=== PATIENT | male | born 1960 | race Caucasian/White ===

== ENCOUNTER 2016-04-19 13:59 | Outpatient (RCR) | payer MEDICARE, OTHER ==
[~2016-04-19 13:59] MED LIST: NORCO 10/3251 EA ORAL; ROBAXIN-750750 MG PO
== END 2016-05-17 | disposition home or self-care (01) ==
LOC: WCC 13:59
DX: L89.614 Pressure ulcer of right heel, stage 4 (principal); G90.09 Other idiopathic peripheral autonomic neuropathy; S34.109D Unspecified injury to unspecified level of lumbar spinal cord, subsequent encounter; I10 Essential (primary) hypertension; Z86.59 Personal history of other mental and behavioral disorders; Z79.82 Long term (current) use of aspirin
CPT/HCPCS: 11043; 15275; G0463; Q4132

== ENCOUNTER 2016-05-31 13:56 | Outpatient (RCR) | payer MEDICARE, OTHER ==
[~2016-05-31] VITALS: Ht 185.4 cm; Wt 93.0 kg
[2016-06-01] MEDS ORDERED: Lidocaine 2% MPF 5ml Vial INJ ONE (16:15)
== END 2016-06-14 | disposition home or self-care (01) ==
LOC: WCC 13:56
DX: L89.614 Pressure ulcer of right heel, stage 4 (principal); G90.09 Other idiopathic peripheral autonomic neuropathy; Z90.49 Acquired absence of other specified parts of digestive tract; I10 Essential (primary) hypertension; F41.9 Anxiety disorder, unspecified; F32.9 Major depressive disorder, single episode, unspecified; Z79.82 Long term (current) use of aspirin; Z88.8 Allergy status to other drugs, medicaments and biological substances; S34.109A Unspecified injury to unspecified level of lumbar spinal cord, initial encounter
CPT/HCPCS: 11043; 11100; G0463

== ENCOUNTER 2016-06-28 14:02 | Outpatient (RCR) | payer MEDICARE, OTHER | END 2016-07-15 | disposition home or self-care (01) | LOC: WCC 14:02 | DX: L89.614 Pressure ulcer of right heel, stage 4 (principal); G90.09 Other idiopathic peripheral autonomic neuropathy; Z90.49 Acquired absence of other specified parts of digestive tract; I10 Essential (primary) hypertension; F41.9 Anxiety disorder, unspecified; F32.9 Major depressive disorder, single episode, unspecified; S34.109S Unspecified injury to unspecified level of lumbar spinal cord, sequela; L97.321 Non-pressure chronic ulcer of left ankle limited to breakdown of skin; X58.XXXD Exposure to other specified factors, subsequent encounter; Z79.82 Long term (current) use of aspirin | CPT/HCPCS: 11042; 11721; G0463 ==

== ENCOUNTER 2016-07-19 14:00 | Outpatient (RCR) | payer MEDICARE, OTHER | END 2016-08-14 | disposition home or self-care (01) | LOC: WCC 14:00 | DX: L89.614 Pressure ulcer of right heel, stage 4 (principal); G90.09 Other idiopathic peripheral autonomic neuropathy; Z90.49 Acquired absence of other specified parts of digestive tract; I10 Essential (primary) hypertension; F41.9 Anxiety disorder, unspecified; F32.9 Major depressive disorder, single episode, unspecified; S34.109S Unspecified injury to unspecified level of lumbar spinal cord, sequela; L97.321 Non-pressure chronic ulcer of left ankle limited to breakdown of skin | CPT/HCPCS: 11042; G0463 ==

== ENCOUNTER 2016-08-16 13:43 | Outpatient (RCR) | payer MEDICARE, OTHER | END 2016-09-14 | disposition home or self-care (01) | LOC: WCC 13:43 | DX: L89.614 Pressure ulcer of right heel, stage 4 (principal); G90.09 Other idiopathic peripheral autonomic neuropathy; Z90.49 Acquired absence of other specified parts of digestive tract; I10 Essential (primary) hypertension; F41.9 Anxiety disorder, unspecified; F32.9 Major depressive disorder, single episode, unspecified; S34.109S Unspecified injury to unspecified level of lumbar spinal cord, sequela; L97.321 Non-pressure chronic ulcer of left ankle limited to breakdown of skin | CPT/HCPCS: 11055; G0463 ==

== ENCOUNTER 2016-09-27 13:49 | Outpatient (RCR) | payer MEDICARE, OTHER | END 2016-10-14 | disposition home or self-care (01) | LOC: WCC 13:49 | DX: L89.614 Pressure ulcer of right heel, stage 4 (principal); G90.09 Other idiopathic peripheral autonomic neuropathy; Z90.49 Acquired absence of other specified parts of digestive tract; I10 Essential (primary) hypertension; F41.9 Anxiety disorder, unspecified; F32.9 Major depressive disorder, single episode, unspecified; M21.372 Foot drop, left foot; L03.115 Cellulitis of right lower limb; S34.109S Unspecified injury to unspecified level of lumbar spinal cord, sequela; X58.XXXS Exposure to other specified factors, sequela; Z79.82 Long term (current) use of aspirin | CPT/HCPCS: 87070; 87181; 87205; G0463 ==

== ENCOUNTER 2016-11-01 14:00 | Outpatient (RCR) | payer MEDICARE, OTHER | END 2016-11-14 | disposition home or self-care (01) | LOC: WCC 14:00 | DX: L97.411 Non-pressure chronic ulcer of right heel and midfoot limited to breakdown of skin (principal); L89.614 Pressure ulcer of right heel, stage 4; G90.09 Other idiopathic peripheral autonomic neuropathy; Z90.49 Acquired absence of other specified parts of digestive tract; I10 Essential (primary) hypertension; S34.109S Unspecified injury to unspecified level of lumbar spinal cord, sequela; M21.372 Foot drop, left foot; L03.115 Cellulitis of right lower limb; L60.2 Onychogryphosis; Z79.82 Long term (current) use of aspirin | CPT/HCPCS: 11721; 87070; 87181; 87205; G0463 ==

== ENCOUNTER 2016-11-15 14:00 | Outpatient (RCR) | payer MEDICARE, OTHER ==
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
--- NOTE | 2016-11-29 15:47 | Infectious Diseases Prog Note ---
Assessment/Plan Problems: (1) Osteomyelitis, chronic Assessment & Plan: due to MRSA, pseudomonas aeruginosa and klebsiella oxytoca , failed multiple courses of IV antibiotics , recommend calcaneal bone amputation for cure, , but he refused. will continue doxycycline for rodent exterminator suppression , to cover MRSA. unfortunately we can't use fluoroquinolone for his Pseudomonas aeruginosa suppression since he is allergic . continue local wound care as per secretary bookkeeper and dressing change . can't use rifampin either due to multiple drugs interaction . D/W patient and secretary bookkeeper in details (2) Open wound of right heel Assessment & Plan: due to underlying chronic osteomyelitis, continue local wound care with debriedment as needed as per secretary bookkeeper , on doxycycline care home suppression Subjective Constitutional: Reports: no symptoms HEENT: Reports: no symptoms Respiratory: Reports: no symptoms Breasts: Reports: no symptoms Cardiovascular: Reports: no symptoms Gastrointestinal/Abdominal: Reports: no symptoms Genitourinary: Reports: no symptoms Neurologic: Reports: no symptoms Psychiatric: Reports: anxiety Skin: Reports: ulcer Endocrine: Reports: no symptoms Hematologic: Reports: no symptoms Musculoskeletal: Reports: no symptoms Allergies: Coded Allergies: LEVOFLOXACIN (Unverified Allergy, Unknown, 11/07/13) Objective General Appearance: WD/WN, no acute distress HEENT: normocephalic, atraumatic, anicteric, mucous membranes moist, PERRL, EOMI, pharynx normal, supple, no JVD Respiratory/Chest: chest wall non-tender, lungs clear, normal breath sounds, no respiratory distress, no accessory muscle use Cardiovascular: normal peripheral pulses, normal rate, regular rhythm, no gallop/murmur, no JVD Abdomen: normal bowel sounds, soft, non tender, no organomegaly, non distended , no mass, no scars Extremities: no cyanosis, no clubbing Skin: no rash, lesions, ulcers - right heel chronic wound , with hyperkeratosis , and small sinus track Neurologic/Psychiatric: alert, oriented x 3, responsive Lymphatic: no neck adenopathy, no groin adenopathy Musculoskeletal: normal muscle bulk Yelena Martinez M.D. Nov 29, 2016 15:47
--- NOTE | 2016-12-13 16:02 | Infectious Diseases Prog Note ---
Assessment/Plan Problems: (1) Osteomyelitis, chronic Assessment & Plan: due to MRSA, pseudomonas aeruginosa and klebsiella oxytoca , failed multiple courses of IV antibiotics , he has refused calcaneal bone amputation for cure, but agreed for chronic suppression with oral antibiotics . continue doxycycline for buncher machine suppression , to cover MRSA. unfortunately we can't use fluoroquinolone for his Pseudomonas aeruginosa suppression since he is allergic . continue local wound care as per docking saw operator and dressing change . can't use rifampin either due to multiple drugs interaction . D/W patient and docking saw operator in details (2) Open wound of right heel Assessment & Plan: due to underlying chronic osteomyelitis, continue local wound care with debridement as needed as per docking saw operator , on doxycycline buncher machine suppression for MRSA wound infection Subjective Constitutional: Reports: no symptoms HEENT: Reports: no symptoms Respiratory: Reports: no symptoms Breasts: Reports: no symptoms Cardiovascular: Reports: no symptoms Gastrointestinal/Abdominal: Reports: no symptoms Genitourinary: Reports: no symptoms Neurologic: Reports: no symptoms Psychiatric: Reports: anxiety Skin: Reports: ulcer, other - skin break on the left leg Endocrine: Reports: no symptoms Hematologic: Reports: no symptoms Musculoskeletal: Reports: no symptoms Allergies: Coded Allergies: LEVOFLOXACIN (Unverified Allergy, Unknown, 11/07/13) Objective General Appearance: WD/WN, no acute distress HEENT: normocephalic, atraumatic, anicteric, mucous membranes moist, PERRL, EOMI, pharynx normal, supple, no JVD Respiratory/Chest: chest wall non-tender, lungs clear, normal breath sounds, no respiratory distress, no accessory muscle use Cardiovascular: normal peripheral pulses, normal rate, regular rhythm, no gallop/murmur, no JVD Abdomen: normal bowel sounds, soft, non tender, no organomegaly, non distended , no mass, no scars Extremities: no cyanosis, no clubbing, other - right heel with dry skin and no evidence of drianage or sinus track Skin: no rash, no lesions, ulcers Neurologic/Psychiatric: alert, oriented x 3, responsive Lymphatic: no neck adenopathy, no groin adenopathy Yelena Martinez M.D. Dec 13, 2016 16:02
== END 2016-12-15 | disposition home or self-care (01) ==
LOC: WCC 14:00
DX: L97.411 Non-pressure chronic ulcer of right heel and midfoot limited to breakdown of skin (principal); L89.614 Pressure ulcer of right heel, stage 4; G90.09 Other idiopathic peripheral autonomic neuropathy; Z90.49 Acquired absence of other specified parts of digestive tract; I10 Essential (primary) hypertension; F41.9 Anxiety disorder, unspecified; F32.9 Major depressive disorder, single episode, unspecified; S34.109S Unspecified injury to unspecified level of lumbar spinal cord, sequela; M21.372 Foot drop, left foot; M86.471 Chronic osteomyelitis with draining sinus, right ankle and foot
CPT/HCPCS: 11055; 15275; G0463; Q4133

== ENCOUNTER 2016-12-20 14:30 | Outpatient (RCR) | payer MEDICARE, OTHER ==
--- NOTE | 2017-01-03 15:25 | Infectious Diseases Prog Note ---
Assessment/Plan Problems: (1) Osteomyelitis, chronic Assessment & Plan: continue doxycycline for quality control inspector suppression , since he refused amputation , his draining sinus is closed and no longer draining . (2) Open wound of right heel Assessment & Plan: improved with doxycycline , with no longer draining any fluids . continue off loading on the right heel as per manager of internal and local wound care . Subjective Constitutional: Reports: no symptoms HEENT: Reports: no symptoms Respiratory: Reports: no symptoms Breasts: Reports: no symptoms Cardiovascular: Reports: no symptoms Gastrointestinal/Abdominal: Reports: no symptoms Genitourinary: Reports: no symptoms Neurologic: Reports: no symptoms Psychiatric: Reports: no symptoms Skin: Reports: no symptoms Endocrine: Reports: no symptoms Hematologic: Reports: no symptoms Musculoskeletal: Reports: no symptoms Allergies: Coded Allergies: LEVOFLOXACIN (Unverified Allergy, Unknown, 11/07/13) Objective General Appearance: WD/WN, no acute distress HEENT: normocephalic, atraumatic, anicteric, mucous membranes moist, PERRL, EOMI, pharynx normal, supple, no JVD Respiratory/Chest: chest wall non-tender, lungs clear, normal breath sounds, no respiratory distress, no accessory muscle use Cardiovascular: normal peripheral pulses, normal rate, regular rhythm, no gallop/murmur, no JVD Abdomen: normal bowel sounds, soft, non tender, no organomegaly, non distended , no mass, no scars Extremities: no cyanosis, no clubbing Skin: no rash, no lesions, no ulcers Neurologic/Psychiatric: alert, oriented x 3, responsive Lymphatic: no neck adenopathy, no groin adenopathy Yelena Martinez M.D. Jan 03, 2017 15:25
== END 2017-01-14 | disposition home or self-care (01) ==
LOC: WCC 14:30
DX: L97.411 Non-pressure chronic ulcer of right heel and midfoot limited to breakdown of skin (principal); G90.09 Other idiopathic peripheral autonomic neuropathy; S34.109S Unspecified injury to unspecified level of lumbar spinal cord, sequela; M21.372 Foot drop, left foot; L89.614 Pressure ulcer of right heel, stage 4; M86.471 Chronic osteomyelitis with draining sinus, right ankle and foot; X58.XXXS Exposure to other specified factors, sequela; I10 Essential (primary) hypertension; F41.9 Anxiety disorder, unspecified; F32.9 Major depressive disorder, single episode, unspecified; Z79.82 Long term (current) use of aspirin; Z88.8 Allergy status to other drugs, medicaments and biological substances
CPT/HCPCS: 11055; G0463

== ENCOUNTER 2017-01-17 14:00 | Outpatient (RCR) | payer MEDICARE, OTHER ==
--- NOTE | 2017-01-17 17:32 | Infectious Diseases Prog Note ---
Assessment/Plan Problems: (1) Bronchitis, acute Assessment & Plan: will give him zithromax for five days (2) Osteomyelitis, chronic Assessment & Plan: due to MRSA, pseudomonas and klebsiella oxytoca, suppressed with doxycycline with complete closure of his sinus track, continue terminal supervisor suppression , follow up with manager restaurant (3) Open wound of right heel Assessment & Plan: closed and dry , continue doxycycline for group home suppression of his chronic osteomyelitis Subjective Constitutional: Reports: fatigue HEENT: Reports: congestion Respiratory: Reports: productive cough Breasts: Reports: no symptoms Cardiovascular: Reports: no symptoms Gastrointestinal/Abdominal: Reports: no symptoms Genitourinary: Reports: no symptoms Neurologic: Reports: no symptoms Psychiatric: Reports: no symptoms Skin: Reports: no symptoms Endocrine: Reports: no symptoms Hematologic: Reports: no symptoms Musculoskeletal: Reports: pain Allergies: Coded Allergies: LEVOFLOXACIN (Unverified Allergy, Unknown, 11/07/13) Objective General Appearance: WD/WN, no acute distress HEENT: normocephalic, atraumatic, anicteric, mucous membranes moist, PERRL, EOMI, pharynx normal, supple, no JVD Respiratory/Chest: chest wall non-tender, no respiratory distress, no accessory muscle use, decreased breath sounds, crackles/rales Cardiovascular: normal peripheral pulses, normal rate, regular rhythm, no gallop/murmur, no JVD Abdomen: normal bowel sounds, soft, non tender, no organomegaly, non distended , no mass, no scars Extremities: no cyanosis, no clubbing Skin: no rash, no lesions, no ulcers Neurologic/Psychiatric: alert, oriented x 3, responsive Lymphatic: no neck adenopathy, no groin adenopathy Yelena Martinez M.D. Jan 17, 2017 17:32
== END 2017-02-14 | disposition home or self-care (01) ==
LOC: WCC 14:00
DX: M86.471 Chronic osteomyelitis with draining sinus, right ankle and foot (principal); S91.301A Unspecified open wound, right foot, initial encounter; J20.9 Acute bronchitis, unspecified; X58.XXXA Exposure to other specified factors, initial encounter; Y93.9 Activity, unspecified; Y92.9 Unspecified place or not applicable; Z88.8 Allergy status to other drugs, medicaments and biological substances; L97.411 Non-pressure chronic ulcer of right heel and midfoot limited to breakdown of skin; G90.09 Other idiopathic peripheral autonomic neuropathy; S34.109S Unspecified injury to unspecified level of lumbar spinal cord, sequela; M21.372 Foot drop, left foot; L89.614 Pressure ulcer of right heel, stage 4
CPT/HCPCS: G0463